=== PATIENT | male | born 2000 | race Caucasian/White ===

== ENCOUNTER 2020-08-04 15:58 | Emergency (ER) | payer OTHER ==
[~2020-08-04] VITALS: Wt 99.8 kg
[~2020-08-04 15:58] MED LIST: CEPHALEXIN500 M1 PO; NAPROSYN500 MG PO; SEPTDS PO; ZOFRAN4 MG PO
[2020-08-04 16:06] VITALS: BP 121/86
[2020-08-04] MEDS ORDERED: AUGMENTIN 875875 MG PO (16:48)
[2020-08-04] MEDS ORDERED: IBUPROFEN600 MG PO (16:48)
== END 2020-08-04 17:10 | disposition home or self-care (01) ==
LOC: ED 15:58
DX: K04.7 Periapical abscess without sinus (principal)

== ENCOUNTER 2022-12-19 10:28 | Emergency (ER) | payer OTHER ==
[~2022-12-19] VITALS: Ht 165.1 cm; Wt 68.0 kg
[~2022-12-19 10:28] MED LIST changes: +AUGMENTIN 875875 MG PO; +IBUPROFEN600 MG PO
[2022-12-19 10:35] VITALS: BP 120/70
[2022-12-19] MEDS ORDERED: Motrin,Rufen800 MG PO (11:04)
[2022-12-19] MEDS ORDERED: AMOXICILLIN500 M2 PO (11:04)
== END 2022-12-19 11:12 | disposition home or self-care (01) ==
LOC: ED 10:28
DX: K08.89 Other specified disorders of teeth and supporting structures (principal)

== ENCOUNTER 2023-02-10 10:44 | Emergency (ER) | payer OTHER ==
[~2023-02-10] VITALS: Wt 88.0 kg
[~2023-02-10 10:44] MED LIST changes: +AMOXICILLIN500 M2 PO; +Motrin,Rufen800 MG PO
[2023-02-10 11:02] VITALS: BP 112/64
[2023-02-10 12:04] LABS: BASO # 0.1 10*3/uL (0.0-0.1); BASO % 0.5 % (0.0-1.0); EOS # 0.3 10*3/uL (0.0-0.4); EOS % 3.3 % (1.0-4.0); HEMATOCRIT 48.4 % (42.0-52.0); MEAN CELL VOLUME 85.1 fl (80.0-94.0); MEAN CORPUSCULAR HGB 29.3 pg (27.0-31.0); MEAN CORPUSCULAR HGB CONC 34.5 g/dl (33.0-37.0); MEAN PLATELET VOLUME 9.9 fl (9.6-12.3); MONO # 0.9 10*3/uL (0.1-1.0); MONO % 10.2 % (3.0-9.0); NEUT % 53.7 % (47.0-73.0); PLATELET COUNT AUTOMATED 309 10*3/uL (130-400); RED BLOOD COUNT 5.69 10*6/uL (4.50-5.90); RED CELL DISTRI WIDTH 12.1 % (0-14.5); WHITE BLOOD COUNT 9.2 10*3/uL (4.8-10.8)
[2023-02-10 12:18] LABS: ACT PARTIAL THROMBO TIME 30.2 SECONDS (20.0-32.1)
[2023-02-10 12:19] LABS: ALKALINE PHOSPHATASE 42 U/L (46-116); BUN 10 mg/dl (9-23); CHLORIDE 105 mmol/L (98-107); LIPASE 56 U/L (12-53); POTASSIUM 3.6 mmol/L (3.4-5.1); SGPT/ALT 17 U/L (10-49); TOTAL PROTEIN 7.5 gm/dL (6.0-8.0)
[2023-02-10 13:11] LABS: BILIRUBIN Negative (Negative); BLOOD Negative (Negative); CLARITY Clear (Clear); COLOR Yellow (Yellow); GLUCOSE Negative (Negative); KETONE Trace (Negative); LEUKO ESTERASE Negative (Negative); NITRITE Negative (Negative); SPECIFIC GRAVITY 1.025 (1.001-1.030)
[2023-02-10 13:30] LABS: BACTERIA TRACE; MUCOUS TRACE; RBC 0-2 rbc/hpf (0-2); WBC 0-2 wbc/hpf (0-5)
== END 2023-02-10 14:08 | disposition home or self-care (01) ==
LOC: ED 10:44
PROVIDERS: Physician Assistant
DX: R55 Syncope and collapse (principal)

== ENCOUNTER 2024-10-23 12:03 | Emergency (ER) | payer OTHER ==
[~2024-10-23] VITALS: Wt 84.4 kg
[2024-10-23 12:22] VITALS: BP 125/77
[2024-10-23] MEDS ORDERED: Amoxicillin/Clavulanate Pota 875 MG TAB PO ONE (12:30)
[2024-10-23] MEDS ORDERED: AMOX-CLAV 875-1 EACH PO (12:31)
== END 2024-10-23 12:41 | disposition home or self-care (01) ==
LOC: ED 12:03
DX: J02.0 Streptococcal pharyngitis (principal); R22.1 Localized swelling, mass and lump, neck; F17.210 Nicotine dependence, cigarettes, uncomplicated

== ENCOUNTER 2024-10-27 15:05 | Emergency (ER) | payer OTHER ==
[~2024-10-27] VITALS: Ht 177.8 cm; Wt 83.0 kg
[~2024-10-27 15:05] MED LIST changes: +AMOX-CLAV 875-1 EACH PO
[2024-10-27 15:17] VITALS: BP 117/74
== END 2024-10-27 15:45 | disposition home or self-care (01) ==
LOC: ED 15:05
DX: R59.0 Localized enlarged lymph nodes (principal); Z87.891 Personal history of nicotine dependence